=== PATIENT | female | born 1995 ===

== ENCOUNTER 2016-06-09 13:58 | Emergency (ER) | payer BC, OTHER ==
[2016-06-09 14:17] VITALS: BP 113/76
[2016-06-09] MEDS ORDERED: Acetaminophen TAB* 325 MG PO ONE (15:05)
--- NOTE | 2016-06-09 15:34 | RAD ---
INDICATION: Intracranial injury COMPARISON: None TECHNIQUE: Noncontrast axial source images were acquired from the skull base to the vertex. FINDINGS: Ventricles/sulci: The ventricles and cisterns are normal in size and configuration for age. Brain parenchyma: There is no focal parenchymal finding, evidence of intracranial mass, or intracranial mass effect. Intracranial hemorrhage:None. Extra-axial spaces: There are no abnormal extra axial fluid collections or evidence of extra-axial mass. Calvarium: There is no calvarial fracture or other calvarial abnormality. Scalp: There is no evidence of scalp or extracalvarial soft tissue abnormality. Paranasal sinuses/mastoid: The paranasal sinuses and mastoid air cells are clear. Other: None. IMPRESSION: NEGATIVE EXAMINATION
--- NOTE | 2016-06-09 20:37 | UC ---
Justin Simpson Janilya, scribed for Maryanne Gotti MD on 06/09/16 at 1511 . Head Injury HPI - HPI Summary HPI Summary: A 21 y/o female came in to [facility] presenting w/ a head injury on Tuesday, June 05. Pt states she hit the right front of her head on the corner of the car. She did not pass out or lose consciousness. However, 3 days later, on June 08, after practicing ballet, jumping, and twirling, pt suddenly felt nauseous, lightheaded, dizziness, disoriented. In addition, pt reports lateral stiffness in neck. Pt has now SALOMON, severity 09/18. Pt denies vomiting, numbness, tingling. Pt took two Advils this morning. Her LNMP started on Tuesday, 06/04 and ended yesterday 06/08. PMHx concussion a few years ago that lasted 2 weeks. FMHx DM. - History Of Current Complaint Chief Complaint: UCHeadInjury Stated Complaint: HEAD INJURY Time Seen by Provider: 06/09/16 14:44 Hx Obtained From: Patient Hx Last Menstrual Period: 06/04/16 ?: No Onset/Duration: Sudden Onset, Lasting Days, Still Present Severity Currently: Moderate Severity Initially: Moderate Pain Intensity: 0 Pain Scale Used: 0-10 Numeric Character: Other - none Aggravating Factor(s): Nothing Alleviating Factor(s): Nothing Associated Signs And Symptoms: Positive: Neck Pain, Nausea. Negative: LOC ( Time In Secs./Mins/Hrs), LOC Duration Unknown, Vomiting Related History: Similar Episode/Dx as - concussion - Risk Factors SDH Risk Factor: Negative - Allergies/Home Medications Allergies/Adverse Reactions: Allergies Allergy/AdvReac Type Severity Reaction Status Date / Time Grass Allergy Rash And Uncoded 06/09/16 14:17 Itching Home Medications: Home Medications Desogestrel & Ethinyl Estradio [[place] 0.15-30 mg-Mcg] 1 tab PO DAILY [History Confirmed 06/09/16] Sertraline HCl [Zoloft] 75 mg PO DAILY 06/09/16 [History Confirmed 06/09/16] PMH/Surg Hx/FS Hx/Imm Hx Previously Healthy: Yes Endocrine History Of: Denies: Diabetes, Thyroid Disease Cardiovascular History Of: Denies: Cardiac Disorders, Hypertension Respiratory History Of: Reports: Asthma - mild Denies: COPD - Surgical History Surgical History: Yes Surgery Procedure, Year, and Place: Central teeth extractions - Family History Known Family History: Positive: Diabetes - Social History Occupation: Student - IC Alcohol Use: Occasionally Substance Use Type: None Smoking Status (MU): Never Smoked Tobacco Review of Systems Gastrointestinal: Negative - pt denies vomiting, Other - nausea Motor: Negative Neurovascular: Negative Musculoskeletal: Other: - lateral stiffness in neck Neurological: Negative - pt denies LOC, numbness, tingling, Headache, Other - lightheadedness, dizziness, disorientation Psychological: Negative All Other Systems Reviewed And Are Negative: Yes Physical Exam Triage Information Reviewed: Yes Appearance: No Pain Distress, Well-Nourished, Ill-Appearing Vital Signs: Initial Vital Signs Temp 98.9 F 06/09/16 14:08 Pulse 93 06/09/16 14:08 Resp 18 06/09/16 14:08 BP 113/76 06/09/16 14:08 Pulse Ox 100 06/09/16 14:08 Vital Signs Reviewed: Yes Eyes: Positive: Conjunctiva Clear, Other: - PERRL EOMI ENT: Positive: Pharynx normal, TMs normal Neck: Positive: Supple, Tenderness @ - mild bilateral lateral muscular tenderness Respiratory: Positive: No respiratory distress Cardiovascular: Positive: RRR, Pulses Normal, Brisk Capillary Refill Musculoskeletal: Positive: Strength Intact, ROM Intact Neurological: Positive: Alert, Muscle Tone Normal, Other: - A&Ox3, motor 5/5, sensation intact, gait normal Psychological Exam: Normal Skin Exam: Normal Diagnostics - Radiology brain CT Xray Interpretation: No Acute Changes Radiology Interpretation Completed By: Radiologist Head Injury Course/Dx - Course Course Of Treatment: MDM: chose to do CT brain with pt's head injury and then late onset of symptoms, that are persisting. Pt understands that it is radiation but agrees benefit outweighs risk. At 1416, discussed negative brain CT results with pt. - Differential Dx/Diagnosis Differential Diagnosis/HQI/PQRI: Concussion Without LOC, Contusion Provider Diagnoses: concussion Discharge - Discharge Plan Condition: Stable Disposition: HOME Patient Education Materials: Concussion (ED) Forms: *Physical Education Release Referrals: Arian Rodriguez MD [Medical Doctor] - As Soon As Possible (for concussion evaluation and therapy ) Non Staff,Doctor [Primary Care Provider] - Additional Instructions: RETURN TO URGENT CARE FOR ANY NEW OR WORSENING SYMPTOMS. The documentation as recorded by the Justin garner Janilya accurately reflects the service I personally performed and the decisions made by me, Maryanne Gotti MD.
== END 2016-06-09 16:34 | disposition home or self-care (01) ==
LOC: UCEAST 13:58
DX: S06.0X0A Concussion without loss of consciousness, initial encounter (principal); W22.8XXA Striking against or struck by other objects, initial encounter; Y93.9 Activity, unspecified; Y92.9 Unspecified place or not applicable
CPT/HCPCS: 70450; 99201; A9270-GY; G0463